=== PATIENT | male | born 1990 | race Caucasian/White ===

== ENCOUNTER 2024-02-06 09:00 | Emergency (ER) | payer SELFPAY ==
[~2024-02-06] VITALS: Ht 172.7 cm; Wt 125.0 kg
[2024-02-06 09:04] VITALS: O2SAT 99
[2024-02-06 09:54] LABS: BASOPHILS % 0.4 % (0.0-2.0); EOSINOPHILS % 0.7 % (0.0-5.0); HEMATOCRIT. 44.8 % (42.0-52.0); HEMOGLOBIN. 15.1 g/dL (14.0-18.0); LYMPHOCYTES % 23.4 % (20.0-50.0); MEAN CORPUSCULAR HEMOGLOBIN 30.3 pg (28.0-32.0); MEAN CORPUSCULAR HGB CONC 33.8 g/dL (31.0-37.0); MEAN CORPUSCULAR VOLUME 89.6 fL (80.0-94.0); MEAN PLATELET VOLUME 7.3 fl (7.4-10.4); MONOCYTES % 5.6 % (2.0-8.0); NEUTROPHILS % 69.9 % (40.0-76.0); PLATELET 360 x1000/uL (130-400); RED CELL DISTRIBUTION WIDTH 13.7 % (11.6-14.6); WHITE BLOOD COUNT 9.3 x1000/uL (4.5-11.0)
[2024-02-06] MEDS ORDERED: TOPUD PO (10:04)
[2024-02-06 10:12] LABS: ALANINE AMINOTRANSFERASE 29 IU/L (10-49); ALBUMIN 5.1 g/dL (3.2-4.8); ASPARTATE AMINOTRANSFERASE 17 IU/L (<34); BILIRUBIN TOTAL 0.7 mg/dL (0.1-1.0); CALCIUM 9.2 mg/dL (8.7-10.4); CARBON DIOXIDE 23 mEq/L (21-32); CHLORIDE 108 mEq/L (98-107); CREATININE 0.7 mg/dL (0.6-1.3); GLUCOSE 96 mg/dL (70-105); PROTEIN TOTAL 8.9 g/dL (6.0-8.3); SODIUM 137 mEq/L (136-145); UREA NITROGEN BLOOD 15 mg/dL (9-23)
[2024-02-06 10:15] LABS: TROPONIN I HIGH SENSITIVITY < 4 ng/L (3.0-53)
[2024-02-06] MEDS: ACETAMINOPHEN 325MG TABLET PO ONE (10:45)
[2024-02-06 10:59] VITALS: BP 141/99; PULSE 71; RESP 17; TEMP 98.2
== END 2024-02-06 11:01 | disposition home or self-care (01) ==
LOC: ER 09:00
DX: R51.9 Headache, unspecified (principal); E11.9 Type 2 diabetes mellitus without complications; I10 Essential (primary) hypertension
CPT/HCPCS: 36415; 71045; 80053; 82962; 83880; 84484; 85025; 93005; 99285